=== PATIENT | female | born 1965 | race Caucasian/White ===

== ENCOUNTER 2021-02-02 00:42 | Emergency (ER) | payer MEDICAID ==
[~2021-02-02] VITALS: Ht 170.2 cm; Wt 65.8 kg
[2021-02-02 00:42] VITALS: BP 145/65
--- NOTE | 2021-02-02 00:54 | NUR ---
XRAY AT BEDSIDE
[2021-02-02 01:25] LABS: BILIRUBIN,URINE Negative (NEGATIVE); COLOR,URINE YELLOW (YELLOW); LEUKOCYTE ESTERASE ,URINE Negative (NEGATIVE); NITRITE, URINE Negative (NEGATIVE); PH,URINE 5.5 (5.0-8.0); PROTEIN,URINE Negative (NEGATIVE); UGLUCOSE Negative (NEGATIVE); UROBILINOGEN,URINE 0.2 EU/dL (0.2)
[2021-02-02] MEDS ORDERED: KETO10TA2 PO (01:33)
--- NOTE | 2021-02-02 01:47 | NUR ---
Patient discharged to home in stable condition. Written and verbal after care instructions given. Patient verbalizes understanding of instruction.pt.ambulatory with a steady gait
== END 2021-02-02 01:46 | disposition home or self-care (01) ==
LOC: ER 00:44
DX: R30.0 Dysuria (principal); M79.671 Pain in right foot; Z98.890 Other specified postprocedural states
CPT/HCPCS: 73630-TC

== ENCOUNTER 2021-04-10 20:54 | Emergency (ER) | payer BC, MEDICAID ==
[~2021-04-10] VITALS: Ht 177.8 cm; Wt 70.3 kg
[~2021-04-10 20:54] MED LIST: KETO10TA2 PO
[2021-04-10 21:13] VITALS: BP 141/81
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
[2021-04-10 21:51] LABS: BASOPHILS # (AUTO) 0.1 K/uL (0.0-0.2); EOSINOPHILS % (AUTO) 0.4 % (0.0-6.0); HEMATOCRIT 33 % (33-45); HEMOGLOBIN 10.7 g/dL (11.5-14.8); LYMPHOCYTES % (AUTO) 35.3 % (20.0-44.0); MEAN CORPUSCULAR HGB CONC 32 g/dl (31.0-36.0); MEAN CORPUSCULAR VOLUME 82 fL (82-100); MONOCYTES # (AUTO) 0.7 K/uL (0.1-1.30); MONOCYTES % (AUTO) 11.8 % (2.0-12.0); NEUTROPHILS # (AUTO) 2.9 K/uL (1.8-8.9); NEUTROPHILS % (AUTO) 51.5 % (43.0-81.0); PLATELET COUNT (AUTO) 195 K/uL (150-450); RED BLOOD CELL COUNT(AUTO) 4.03 MIL/uL (4.0-5.2); WHITE BLOOD COUNT (AUTO) 5.6 K/uL (4.3-11.0)
[2021-04-10 21:58] LABS: CALCIUM, SERUM 8.9 mg/dL (8.5-10.1); CREATININE 0.7 mg/dL (0.6-1.3); POTASSIUM 3.3 mmol/L (3.5-5.1)
[2021-04-10] MEDS ORDERED: IOHEXOL-300 100 ML VIAL IV ONE (22:05)
[2021-04-10] MEDS ORDERED: IV NS 0.9% 250 ML IV ONE (22:05)
[2021-04-10] MEDS ORDERED: CT SWABBABLE VALVE TRANS SET 1 EA INFUS.SET MC ONE (22:05)
[2021-04-10] MEDS ORDERED: ACET-2605 PO (23:00)
--- NOTE | 2021-04-10 23:28 | NUR ---
Patient discharged to home in stable condition. Written and verbal after care instructions given. Patient verbalizes understanding of instruction and RX. Pt ambulated out of ED. vss.
--- NOTE | 2021-04-10 23:28 | NUR ---
IV removed. Catheter intact and site benign. Pressure and 4x4 applied to site. No bleeding noted.
== END 2021-04-11 00:16 | disposition home or self-care (01) ==
LOC: ER 20:55
DX: R10.31 Right lower quadrant pain (principal); R10.11 Right upper quadrant pain; D64.9 Anemia, unspecified; Z98.890 Other specified postprocedural states; Y08.89XA Assault by other specified means, initial encounter; Y93.89 Activity, other specified; Y92.89 Other specified places as the place of occurrence of the external cause; Y99.8 Other external cause status
CPT/HCPCS: 36415; 74177; 80048; 85025; 99285; J7050; Q9967

== ENCOUNTER 2025-07-09 23:58 | Emergency (ER) | payer BC, MEDICAID ==
[~2025-07-09] VITALS: Ht 177.8 cm; Wt 70.3 kg
[~2025-07-09 23:58] MED LIST changes: +ACET-2605 PO
[2025-07-10] MEDS ORDERED: MIDAZOLAM HCL 2 MG/2ML VIAL ONE (00:15)
[2025-07-10] MEDS ORDERED: OLANZAPINE 10 MG VIAL IM ONE (00:15)
[2025-07-10] MEDS: MIDAZOLAM HCL 2 MG/2ML VIAL IM ONE (00:37)
[2025-07-10] MEDS: OLANZAPINE 10 MG VIAL IM ONE (00:37)
[2025-07-10] MEDS ORDERED: MIDAZOLAM HCL 5 MG/5ML VIAL ONE (01:33)
[2025-07-10] MEDS: MIDAZOLAM HCL 2 MG/2ML VIAL IV ONE (01:45)
[2025-07-10 07:44] VITALS: BP 110/77; TEMP 98.5; O2SAT 99
== END 2025-07-10 07:45 | disposition home or self-care (01) ==
LOC: ER 07-10 00:02
DX: S52.592A Other fractures of lower end of left radius, initial encounter for closed fracture (principal); S52.612A Displaced fracture of left ulna styloid process, initial encounter for closed fracture; Z86.19 Personal history of other infectious and parasitic diseases; Z87.442 Personal history of urinary calculi; X58.XXXA Exposure to other specified factors, initial encounter; Y93.89 Activity, other specified; Y92.89 Other specified places as the place of occurrence of the external cause; Y99.9 Unspecified external cause status
CPT/HCPCS: 99285; 25600; 99152; 73110; 73100; J2250 ×2; J3490; G0500